=== PATIENT | female | born 1950 | race Caucasian/White ===

== ENCOUNTER 2024-04-14 22:57 | Emergency (ER) | payer OTHER, SELFPAY ==
[2024-04-14 23:10] VITALS: BP 166/90
--- NOTE | 2024-04-14 23:45 | ED.GENMED ---
History of Present Illness
<WILLIE Dhillon - Last Filed: 04/15/24 00:14>
General
Chief Complaint: Head Injury
Source: patient
Exam Limitations: none
Time Seen by Provider: 04/14/24 23:26
Nursing documentation reviewed up to this point in time: agreed with
History of Present Illness
History of Present Illness:
Pt is a 73 y/o F who presents after a fall incident with head injury x2 hrs ago. The pt reported that she reached the top of her steps and tripped causing her to fall backwards and hit the right side of her head and right shoulder on a metal
handrail at 10pm. She sustained a 1.5 cm laceration to the right side of her head. The pt denies any head pain now. She initially used ice after the incident. Denies LOC, vision changes, nausea, vomiting. The pt also complains of posterior right
shoulder pain that is worse with movement. Denies weakness, decreased ROM, numbness, or tingling. The pt stated that she is unsure when her last tetanus shot was but it may have been in the last 5-10 years.
Past History
<WILLIE Dhillon - Last Filed: 04/15/24 00:14>
Past History
ED Past Medical History: HTN and Other (Irritable bowel, arthritis, contact dermatitis)
ED Past Surgical History: Gynecological (D&C), Tonsilectomy and Other (Eyelid surgery, colonoscopy)
Social History
Tobacco: Non-smoker
Alcohol: None
Drug: None
Living: with family
Employment: Employed
Family History
Family History: Other (Noncontributory)
Review of Systems
<WILLIE Dhillon - Last Filed: 04/15/24 00:14>
Review of Systems
Allergies reviewed?: Yes
Constitutional: Reports no symptoms
EENT: Reports no symptoms
Respiratory: Reports no symptoms
Cardiac: Reports no symptoms
ABD/GI: Reports no symptoms
: Reports no symptoms
Musculoskeletal: Reports joint pain (right shoulder)
Skin: Reports other (1.5 cm laceration right side of head)
Neurological: Reports no symptoms
Endocrine: Reports no symptoms
Hematologic/Lymphatic: Reports no symptoms
Psychiatric: Reports no symptoms
Phy Exam
<WILLIE Dhillon - Last Filed: 04/15/24 00:14>
General Physical Exam
General Presentation: well appearing and no apparent distress
General age: appears stated age
General Skin: warm and dry
General Habitus: normal
General Mental: alert
General Hydration: appears well hydrated
ENT Exam
ENT Exam: EOMI and neck supple
Eye Exam
Eye Exam: PERRL, EOMI, cornea clear, conjunctiva normal, visual acuity normal and visual paige normal
Cardiovascular Exam
Cardiovascular Exam: regular rate/rhythm and normal peripheral pulses
Pulmonary Exam
Pulmonary Exam: lungs clear and no respiratory distress
Gastrointestinal Exam
Gastrointestinal Exam: normal bowel sounds, non tender, soft and non distended
Neurological Exam
Neurological Exam: alert, oriented x3, CN II-XII intact, no motor deficits, normal reflexs, no sensory deficits, speech normal and normal gait
Mental
Mental Status: oriented to person, oriented to place and oriented to time
Describe Speech: normal speech
Cranial
Cranial Nerves: normal and no facial asymetry
EOM (CN3/4/6): intact
Sensory
Sensory Exam: intact
Cerebellar
Cerebellar Function: normal finger to nose
Musculoskeletal Exam
Musculoskeletal Exam: full ROM, neuro vasc intact and other (TTP posterior right shoulder)
Skin Exam
Skin Exam: normal color, warm/dry and laceration (1.5 cm laceration right side of head)
Psychiatric Exam
Psychiatric Exam: normal mood/affect
Course
<WILLIE Dhillon - Last Filed: 04/15/24 00:14>
Orders/Labs/Results
Orders:
Orders
04/14/24 23:26
CT Head W/o Iv Contrast Urgent
Comment:
Reason For Exam: Head trauma
04/15/24 00:16
Tetanus/Diphth/Acelpertussis [Adacel] 0.5 ml IM .ONCE ONE
Vital Signs
Initial and Last Documented VS:
Initial Vital Signs
Temp Pulse Resp BP Pulse Ox
98.3 F 67 16 166/90 98
04/14/24 23:10 04/14/24 23:10 04/14/24 23:10 04/14/24 23:10 04/14/24 23:10
Last Documented Vital Signs
Temp Pulse Resp BP Pulse Ox
98.3 F 67 16 166/90 98
04/14/24 23:10 04/14/24 23:10 04/14/24 23:10 04/14/24 23:10 04/14/24 23:10
<Maximo Hernandez DO - Last Filed: 04/15/24 00:50>
Orders/Labs/Results
Orders:
Orders
04/14/24 23:26
CT Head W/o Iv Contrast Urgent
Comment:
Reason For Exam: Head trauma
04/15/24 00:16
Tetanus/Diphth/Acelpertussis [Adacel] 0.5 ml IM .ONCE ONE
Vital Signs
Initial and Last Documented VS:
Initial Vital Signs
Temp Pulse Resp BP Pulse Ox
98.3 F 67 16 166/90 98
04/14/24 23:10 04/14/24 23:10 04/14/24 23:10 04/14/24 23:10 04/14/24 23:10
Last Documented Vital Signs
Temp Pulse Resp BP Pulse Ox
98.3 F 67 16 166/90 98
04/14/24 23:10 04/14/24 23:10 04/14/24 23:10 04/14/24 23:10 04/14/24 23:10
Procedures
<Maximo Hernandez DO - Last Filed: 04/15/24 00:50>
Laceration Closure
Right Parietal:
Status of Wound: clean
Size of Wound in cm: 2
Description of Wound Edges: sharp and flap-well vascularized
Preparation: cleaned with soap & water
Skin Closure Material: skin torey
Number of sutures: 4
<WILLIE Dhillon - Last Filed: 04/15/24 00:14>
MDM/Problems Addressed
Differential Diagnosis Includes:
Head laceration
Right shoulder sprain
<WILLIE Dhillon - Last Filed: 04/15/24 00:14>
*Critical Care Note
Total Time (30-74mins, 75-104mins- exclusive of procedures): Not Applicable
ED Attending Note
<WILLIE Dhillon - Last Filed: 04/15/24 00:14>
-
Portions of this chart may have been created with voice recognition software.� Occasional wrong word or��sound alike� substitutions may have occurred due to the inherent limitations of voice recognition software.
<Maximo Hernandez DO - Last Filed: 04/15/24 00:50>
ED Attending Note
Patient seen and examined by attending physician: Yes
I performed the substantive portion of visit, reviewed & personally made and approve the management plan that is documented in note by myself or CORNELL.: Yes
ED Attending Note:
This is a pleasant 73-year-old female that presents with a minor head injury. She was walking down steps and stumbled hitting her head on the right iron railing. She denies loss of consciousness. She states she did not fall down the steps.
Patient was able to ambulate without issue after the fact. Denies fever, chills, nausea or vomiting. Reports no headache. Patient was seen in conjunction with the PA student. I have reviewed and agree with the history and treatment plan
presented. On my independent physical exam, patient is awake, alert, and oriented x3 no acute distress. Pupils equal round reactive to light and accommodation. Patient is mentating appropriately. Normal coordination. She does have a 1.5 to 2 cm
flap laceration to the right parietal region of her scalp. Wound was thoroughly cleaned. This was closed with 4 torey. Patient tolerated procedure well without any immediate adverse effects. Patient unsure of her tetanus status so she agreed
to have an update.
Discharge Plan
Departure
Patient Disposition: Home (Routine Discharge)
Date of Disposition: 04/15/24
Time of Disposition: 00:48
Patient with high blood pressure during this ER visit?: Yes
Condition: Good
Discharge Problem:
Fall, Laceration of scalp, Stapled skin wound
Instructions: Head Injury in Adults (DC), Laceration Repair With Torey (DC), BLOOD PRESSURE
Prescriptions:
No Action
lisinopril 10 MG tablet
10 mg PO DAILY
hydrochlorothiazide 25 MG tablet
25 mg PO DAILY
CALCIUM
1 tab PO DAILY
Patient Comments:
pt does not know mg
VITAMIN D
1 tab PO DAILY
Patient Comments:
pt does not know mg
L.acidoph, paracasei,B. lactis 1 EACH capsule
1 tab PO DAILY
metoprolol tartrate 25 MG tablet
25 mg PO QPM
Referrals:
Eusebio Mckeon MD [Family Provider] -
Activity Restrictions/Additional Instructions:
Torey can be removed in 5 to 7 days. Your tetanus was updated today.
It was a pleasure meeting you and taking part in your care. We hope for your continued healing and wellness.
Please read discharge instructions in their entirety. However, they are for general education and may not describe your exact diagnosis at discharge. Information on your ER visit and medical conditions were discussed with you along with appropriate
follow up information...
If indicated, please take your medications as instructed and indicated on discharge paperwork.
Please schedule a follow up appointment as directed. Call to schedule an appointment
Please return to the emergency department with ANY change in, persisting, or worsening of symptoms. If any of your symptoms do not improve, or persist, or become more severe within 6-12 hours, please return to the emergency department for further
care.
Please return to the emergency department if you develop a headache, neck pain/stiffness, fever greater than 100.4F, chest pain, shortness of breath, persistent nausea, vomiting, slurred speech, difficulty walking, numbness/tingling, weakness, signs
of infection or any other symptoms that are worrisome to you.
If you have any questions or concerns please do not hesitate to call the Hospital at or E-mail me directly at [email or web address]
Interventions
Interventions:
*Risk Screen - Suicide Last Done: 04/14/24 22:57
*General Assessment Last Done: 04/14/24 23:10
*Neglect/Abuse Screening Last Done: 04/14/24 23:10
ED- Fall Risk Assessment Last Done: 04/14/24 23:10
*ED COVID-19 Vaccine History Last Done: 04/14/24 23:10
ED- Neurological Assessment Last Done: 04/14/24 23:56
ED-Skin Assessment Last Done: 04/14/24 23:56
Discharge Date and Time
Print Language: FRISIAN
[2024-04-15] MEDS: ADACEL 0.5 ML IM (00:25)
[2024-04-15 00:57] VITALS: BP 141/81
== END 2024-04-15 00:58 | disposition home or self-care (01) ==
LOC: EMR 22:57
PROVIDERS: EMERGENCY PHYSICIAN Student in an Organized Health Care Education/Training Program; FAMILY PHYSICIAN Family Medicine
DX: S01.01XA Laceration without foreign body of scalp, initial encounter (principal); W01.10XA Fall on same level from slipping, tripping and stumbling with subsequent striking against unspecified object, initial encounter; I10 Essential (primary) hypertension; Z23 Encounter for immunization
CPT/HCPCS: 99284; 12001; 90471; 70450; 90715

== ENCOUNTER → 2024-07-27 10:15 | Outpatient (REF) | payer OTHER, SELFPAY | LOC: HWWDC 10:15 | PROVIDERS: ATTENDING PHYSICIAN Family Medicine | DX: Z12.31 Encounter for screening mammogram for malignant neoplasm of breast (principal) | CPT/HCPCS: 77063; 77067 ==

== ENCOUNTER → 2025-02-18 14:41 | Outpatient (REF) | payer OTHER, SELFPAY | LOC: EMG 14:41 | PROVIDERS: ATTENDING PHYSICIAN Family Medicine | DX: R20.2 Paresthesia of skin (principal) | CPT/HCPCS: 95886; 95909 ==

== ENCOUNTER → 2025-02-18 15:45 | Outpatient (REF) | payer OTHER, SELFPAY | LOC: RAD 15:45 | PROVIDERS: ATTENDING PHYSICIAN Family Medicine | DX: M54.16 Radiculopathy, lumbar region (principal) | CPT/HCPCS: 72110 ==